=== PATIENT | female | born 1990 | race African-American/Black ===

== ENCOUNTER 2019-06-23 14:06 | Emergency (ER) | payer OTHER ==
[~2019-06-23] VITALS: Ht 172.7 cm; Wt 72.6 kg
[2019-06-23 14:11] VITALS: BP_SYST 160
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
--- NOTE | 2019-06-23 14:20 | NUR ---
Patient to ER bed 5 to gown for evaluation. Side rails up. Report given to Antonio HORVATH.
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
--- NOTE | 2019-06-23 14:28 | NUR ---
Cristina BUTCHER at bedside.
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
[2019-06-23] MEDS ORDERED: ACETAMINOPHEN 500 MG TABLET PO ONE (14:45)
--- NOTE | 2019-06-23 15:00 | NUR ---
Pt was wheelchaired to [place] with tech, no acute distress noted. Pt denied any blurred vision, nausea, or vomiting.
[2019-06-23 15:14] LABS: BILIRUBIN,URINE NEGATIVE (NEGATIVE); BLOOD, URINE 3+ (NEGATIVE); CLARITY/URINE CLEAR (CLEAR); COLOR,URINE YELLOW (YELLOW); GLUCOSE,URINE NEGATIVE (NEGATIVE); KETONES,URINE NEGATIVE (NEGATIVE); LEUKOCYTE ESTERASE ,URINE NEGATIVE (NEGATIVE); NITRITE, URINE NEGATIVE (NEGATIVE); PROTEIN URINE NEGATIVE (NEGATIVE); UROBILINOGEN,URINE 0.2 (0.2-1.0)
--- NOTE | 2019-06-23 15:19 | NUR ---
Pt came back from [place] on wheelchair.
[2019-06-23 15:30] LABS: BARBITURATE, URINE NEGATIVE (NEG <=200); BENZODIAZEPINE, URINE NEGATIVE (NEG <=150); CANNABINOID, URINE POSITIVE (NEG <=50); COCAINE, URINE NEGATIVE (NEG <=150); METHAMPHETAMINES SCREEN,URINE POSITIVE (NEG <=500); OPIATE, URINE NEGATIVE (NEG <=100); PHENCYCLIDINE SCREEN,URINE NEGATIVE (NEG <=25); UR TRICYCLIC ANTIDEPRESSANTS NEGATIVE (NEG <=300); URINE AMPHETAMINE POSITIVE (NEG <=500); URINE METHADONE NEGATIVE (NEG <=200); URINE OXYCODONE SCREEN NEGATIVE (NEG <=100); URINE PROPOXYPHENE SCREEN NEGATIVE (NEG <=300)
[2019-06-23 15:34] LABS: BACTERIA,URINE FEW /HPF (None Seen); WBC,URINE 0-3 /HPF (0-3)
[2019-06-23 15:35] LABS: MUCUS,URINE None Seen /LPF (None Seen)
--- NOTE | 2019-06-23 15:49 | NUR ---
Pt was noted to be upset with mother in room and ran out of room to oustide of ED. Unable to discuss need to stay with pt.
--- NOTE | 2019-06-23 15:50 | NUR ---
Patient left the ER without talking to any staff.
--- NOTE | 2019-06-23 15:58 | NUR ---
Pt walked back into room with mother crying.
--- NOTE | 2019-06-23 16:20 | NUR ---
Pt is in room with mother, talking , no acute distress noted.
--- NOTE | 2019-06-23 16:40 | NUR ---
Pt is in room, resting, states her pain is better.
[2019-06-23] MEDS ORDERED: BACITRACIN 1 GM OINT TP ONE (16:45)
--- NOTE | 2019-06-23 17:47 | NUR ---
Patient given written and verbal discharge instructions and verbalizes understanding. ER MD discussed with patient the results and treatment provided. Patient in stable condition. ID arm band removed.Rx of bacitracin, flaygyl, and tylenol given. Opportunity for questions provided and answered. Medication side effect fact sheet provided.
[2019-06-23 17:52] VITALS: BP_SYST 128
--- NOTE | 2019-06-24 10:28 | NUR ---
RECEIVED DISCREPANCY FROM RADIOLOGY, DR DIXON CALLED AND LEFT MESSAGE FOR PT TO RETURN TO ER OR TO CALL BACK TO ER.
[2019-06-25 11:55] LABS: CHLAMYDIA TRACHOMATIS NAA Negative (Negative); NEISSERIA GONORRHOEAE NAA Negative (Negative)
== END 2019-06-23 17:52 | disposition home or self-care (01) ==
LOC: SED 14:06
DX: S02.32XA Fracture of orbital floor, left side, initial encounter for closed fracture (principal); S02.2XXA Fracture of nasal bones, initial encounter for closed fracture; S90.31XA Contusion of right foot, initial encounter; S00.81XA Abrasion of other part of head, initial encounter; S00.511A Abrasion of lip, initial encounter; S20.412A Abrasion of left back wall of thorax, initial encounter; N76.0 Acute vaginitis; B96.89 Other specified bacterial agents as the cause of diseases classified elsewhere; R03.0 Elevated blood-pressure reading, without diagnosis of hypertension; F12.10 Cannabis abuse, uncomplicated; F15.10 Other stimulant abuse, uncomplicated; F17.210 Nicotine dependence, cigarettes, uncomplicated; Y04.0XXA Assault by unarmed brawl or fight, initial encounter; Y93.89 Activity, other specified; Y92.89 Other specified places as the place of occurrence of the external cause; Y99.8 Other external cause status
CPT/HCPCS: 36415; 70450-TC; 70486-TC; 72125-TC; 72128; 80307; 81000-TC; 81025; 86592; 87210-TC; 87491; 87591; 99284

== ENCOUNTER 2019-06-26 14:55 | Emergency (ER) | payer OTHER ==
[~2019-06-26] VITALS: Ht 175.3 cm; Wt 72.6 kg
[2019-06-26 14:55] VITALS: BP_SYST 137
--- NOTE | 2019-06-26 14:55 | NUR ---
BROUGHT BACK TO BED #6 AND TRIAGED. REPORT GIVEN TO CHAYA
--- NOTE | 2019-06-26 15:10 | NUR ---
patient arrived AOx4 from home with c/o foot pain after shooting up meth last week. patient states [place]. patient states shes done this before but this time it started to get red and irritated. patient denies current drug use and states she is goign to drug rehab next week. patient did not disclose rehab facility. educated patient of signs of hypertention crisis and other side effects of meth use and overdose. no other complaint or injury at this time.
--- NOTE | 2019-06-26 15:10 | NUR ---
ER at bedside examining patient.
[2019-06-26 15:15] VITALS: BP_SYST 130
--- NOTE | 2019-06-26 15:15 | NUR ---
Patient given written and verbal discharge instructions and verbalizes understanding. ER MD discussed with patient the results and treatment provided. Patient in stable condition. ID arm band removed. Rx of Bactrim, Motrin given. Patient educated on pain management and to follow up with PMD. Pain Scale 0/10. Opportunity for questions provided and answered. Medication side effect fact sheet provided.
== END 2019-06-26 15:15 | disposition home or self-care (01) ==
LOC: SED 14:55
DX: L03.115 Cellulitis of right lower limb (principal); F15.10 Other stimulant abuse, uncomplicated; I10 Essential (primary) hypertension
CPT/HCPCS: 99283

== ENCOUNTER 2019-07-24 11:06 | Emergency (ER) | payer MEDICAID, OTHER ==
[~2019-07-24] VITALS: Ht 157.5 cm; Wt 72.6 kg
[2019-07-24 11:10] VITALS: BP_SYST 103
--- NOTE | 2019-07-24 11:17 | NUR ---
Patient to ER bed 07 to gown for evaluation. Side rails up.
--- NOTE | 2019-07-24 11:18 | NUR ---
Pt brought by self, A&Ox4, pt present to ER with persistent R foot pain after cellulitis treatment, pt also c/o white vaginal discharge and itching after vaginitis treatment , pt afebrile, denies vaginal bleeding, skin pink and warm, cap refill <3.
--- NOTE | 2019-07-24 11:26 | NUR ---
Dr Hardy at bedside examining patient
[2019-07-24 12:17] VITALS: BP_SYST 101
--- NOTE | 2019-07-24 12:19 | NUR ---
Patient given written and verbal discharge instructions and verbalizes understanding. ER MD discussed with patient the results and treatment provided. Patient in stable condition. ID arm band removed. Rx of Motrin and Diflucan given. Patient educated on pain management and to follow up with PMD. Pain Scale 3/10 tolerable for pt. Opportunity for questions provided and answered. Medication side effect fact sheet provided.
== END 2019-07-24 12:19 | disposition home or self-care (01) ==
LOC: SED 11:06
DX: N76.0 Acute vaginitis (principal); M67.471 Ganglion, right ankle and foot
CPT/HCPCS: 81002; 81025; 99283

== ENCOUNTER 2019-07-31 00:25 | Emergency (ER) | payer MEDICAID ==
[~2019-07-31] VITALS: Ht 172.7 cm; Wt 72.6 kg
[2019-07-31 00:30] VITALS: BP_SYST 144
[2019-07-31] MEDS ORDERED: DIPH-TET-PERTUS Vaccine 0.5 ML VIAL (ADACEL) I.M. ONE (02:15)
[2019-07-31 03:00] VITALS: BP_SYST 133
== END 2019-07-31 03:00 | disposition home or self-care (01) ==
LOC: SED 00:25
DX: S61.511A Laceration without foreign body of right wrist, initial encounter (principal); W26.8XXA Contact with other sharp object(s), not elsewhere classified, initial encounter; X58.XXXA Exposure to other specified factors, initial encounter; Y93.89 Activity, other specified; Y92.89 Other specified places as the place of occurrence of the external cause; Y99.8 Other external cause status
CPT/HCPCS: 90715; 99283

== ENCOUNTER 2019-10-10 17:31 | Emergency (ER) | payer MEDICAID ==
[~2019-10-10] VITALS: Ht 172.7 cm; Wt 77.1 kg
[2019-10-10 17:42] VITALS: BP_SYST 137
--- NOTE | 2019-10-10 17:52 | NUR ---
PT REPORTS USING METH X 2 HRS AGO.
--- NOTE | 2019-10-11 00:17 | NUR ---
Patient re-triaged and placed in waiting room. VSS and patient appears in no acute distress at this time. Accompanied by self, awaiting available bed, and MD notified of need for MSE. House sup called for sandwich. Pt states that she wants to stop using drugs and be there for her daughter. No acute distress, VSS.
[2019-10-11 03:09] LABS: BILIRUBIN,URINE 2+ (NEGATIVE); BLOOD, URINE 1+ (NEGATIVE); CLARITY/URINE CLEAR (CLEAR); GLUCOSE,URINE NEGATIVE (NEGATIVE); KETONES,URINE 2+ (NEGATIVE); LEUKOCYTE ESTERASE ,URINE NEGATIVE (NEGATIVE); NITRITE, URINE NEGATIVE (NEGATIVE); PROTEIN URINE 1+ (NEGATIVE)
[2019-10-11 03:18] LABS: COLOR,URINE RED (YELLOW)
[2019-10-11 03:23] LABS: BACTERIA,URINE FEW /HPF (None Seen); HYALINE CASTS, URINE 0-10 /LPF (None Seen); WBC,URINE 0-3 /HPF (0-3)
[2019-10-11 03:25] LABS: BARBITURATE, URINE NEGATIVE (NEG <=200); BENZODIAZEPINE, URINE NEGATIVE (NEG <=150); CANNABINOID, URINE POSITIVE (NEG <=50); COCAINE, URINE NEGATIVE (NEG <=150); METHAMPHETAMINES SCREEN,URINE POSITIVE (NEG <=500); OPIATE, URINE NEGATIVE (NEG <=100); PHENCYCLIDINE SCREEN,URINE NEGATIVE (NEG <=25); UR TRICYCLIC ANTIDEPRESSANTS NEGATIVE (NEG <=300); URINE AMPHETAMINE POSITIVE (NEG <=500); URINE METHADONE NEGATIVE (NEG <=200); URINE OXYCODONE SCREEN NEGATIVE (NEG <=100); URINE PROPOXYPHENE SCREEN NEGATIVE (NEG <=300)
--- NOTE | 2019-10-11 11:05 | NUR ---
Patient to ER bed 6 to gown for evaluation. Side rails up. Assumed care.
--- NOTE | 2019-10-11 11:06 | NUR ---
Patient AAOx4, calm and cooperative. Patient states she would like to return to her rehab long term, and needs medical clearance. Pateint states she was recently discharged last . Patient states she has been denied reentry, and they still have her belongings. She remains in contact with staff. Patient states she is homeless otherwise, her mother is here in [facility], but she is guardian to her 4 month old daughter who she cannot be around. 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 She had relapse prior to arrive and drank alcohol. She states she has cough, chills but denies SOB.
--- NOTE | 2019-10-11 11:08 | NUR ---
DRE Arrieta at bedside examining patient.
[2019-10-11] MEDS ORDERED: NACL 0.9% 1,000 ML IV ONE (11:15)
[2019-10-11 12:37] LABS: BASOPHILS % (AUTO) 0.2 % (0.0-2.0); EOSINOPHILS # (AUTO) 0.2 K/uL (0.0-0.4); EOSINOPHILS % (AUTO) 2.5 % (0.0-4.0); HEMATOCRIT 34.9 % (36-48); HEMOGLOBIN 11.3 g/dL (12.0-16.0); LYMPHOCYTES % (AUTO) 27.7 % (20.5-51.5); MEAN CORPUSCULAR HEMOGLOBIN 25 pg (27-31); MEAN CORPUSCULAR HGB CONC 33 % (32-36); MEAN CORPUSCULAR VOLUME 77 fL (79.0-98.0); MONOCYTES # (AUTO) 0.6 K/uL (0.0-1.0); MONOCYTES % (AUTO) 8.1 % (1.7-9.3); NEUTROPHILS # (AUTO) 4.3 K/uL (1.8-7.7); NEUTROPHILS % (AUTO) 61.5 % (40.0-70.0); PLATELET COUNT (AUTO) 344 K/uL (130-430); RED BLOOD CELL COUNT(AUTO) 4.53 MIL/uL (4.2-6.2); RED CELL DISTRIBUTION WIDTH 17.3 % (9.0-15.0); WHITE BLOOD COUNT (AUTO) 7.1 K/uL (4.8-10.8)
[2019-10-11 12:46] LABS: CALCIUM 9.1 mg/dL (8.4-11.0); CREATININE 0.74 mg/dL (0.55-1.30); POTASSIUM 3.5 mmol/L (3.5-5.1)
[2019-10-11 12:51] LABS: TOTAL BILIRUBIN 1.6 mg/dL (0.0-1.0)
--- NOTE | 2019-10-11 13:24 | NUR ---
Attempted to call patients mother Radha Zavala, at [phone], [phone] with no answer.
--- NOTE | 2019-10-11 15:30 | NUR ---
Charge nurse Darren attempted to call Mother several times, reached her. She states she is going to call around to see who can come and pick patient up. She cannot because she has the patients daughter.
--- NOTE | 2019-10-11 16:26 | NUR ---
Patient aware of discharge once we hear from her mother. Patient requesting food, called for a tray.
[2019-10-11] MEDS ORDERED: guaiFENesin/DEXTROMETHORPHAN 10 ML UDC PO ONE (16:45)
--- NOTE | 2019-10-11 17:48 | NUR ---
Spoke with patients aunt Avani Kumar [phone], she will talk to patients mother and see if she is available to bring patient her phone as they cannot have her stay with [facility] r/t a DCFS case.
[2019-10-11 19:36] VITALS: BP_SYST 116
--- NOTE | 2019-10-11 19:36 | NUR ---
Patient given written and verbal discharge instructions and verbalizes understanding. ER MD discussed with patient the results and treatment provided. Patient in stable condition. ID arm band removed. IV catheter removed intact and dressing applied, no active bleeding. Rx of motri,promethazine,albuterol inh given. Patient educated on pain management and to follow up with PMD. Pain Scale 0. Opportunity for questions provided and answered. Medication side effect fact sheet provided.
--- NOTE | 2019-10-11 19:37 | NUR ---
Pt given resource and agreed to wait for professor of social work
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
== END 2019-10-11 19:37 | disposition home or self-care (01) ==
LOC: SED 17:31
DX: F15.90 Other stimulant use, unspecified, uncomplicated (principal); J40 Bronchitis, not specified as acute or chronic; F17.200 Nicotine dependence, unspecified, uncomplicated
CPT/HCPCS: 36415; 71045; 80053; 80307; 81000; 81025; 85025; 86710; 99284; J7030